=== PATIENT | male | born 2000 | race Hispanic/Latino ===

== ENCOUNTER 2022-12-29 13:34 | Emergency (ER) | payer OTHER ==
[~2022-12-29] VITALS: Ht 165.1 cm; Wt 98.9 kg
[2022-12-29] MEDS ORDERED: predniSONE 20 MG TAB PO ONE (14:55)
[2022-12-29] MEDS ORDERED: ALBUTEROL 90 MCG/ACT 8GM HFA INHALER INH ONE (14:55)
[2022-12-29] MEDS ORDERED: ALBU8.5H INH (15:39)
[2022-12-29] MEDS ORDERED: PRED20TA PO (15:39)
[2022-12-29 15:44] VITALS: BP 136/87
== END 2022-12-29 15:44 | disposition home or self-care (01) ==
LOC: M ED 13:34 → EDBD 13:34 → M ED 15:44
DX: J40 Bronchitis, not specified as acute or chronic (principal); F10.10 Alcohol abuse, uncomplicated; Z79.51 Long term (current) use of inhaled steroids; Z79.52 Long term (current) use of systemic steroids
CPT/HCPCS: 71046; 87428; 94640; 99284; J7512

== ENCOUNTER 2025-08-24 07:08 | Emergency (ER) | payer OTHER ==
[~2025-08-24] VITALS: Ht 167.6 cm; Wt 115.3 kg
[~2025-08-24 07:08] MED LIST: ALBU8.5H INH; PRED20TA PO
[2025-08-24 07:10] VITALS: TEMP 98.4
[2025-08-24 08:30] VITALS: BP 154/86
[2025-08-24] MEDS ORDERED: HOME MED LIST COMPLETE! XX SCH (08:30)
[2025-08-24 09:15] VITALS: O2SAT 96
[2025-08-24 09:19] LABS: APPEARANCE, URINE CLEAR (CLEAR); BACTERIA, URINE AUTO NEGATIVE (NEGATIVE); BILIRUBIN, URINE AUTO NEGATIVE (NEGATIVE); BLOOD, URINE BLOOD NEGATIVE (NEGATIVE); GLUCOSE, URINE (UA) AUTO NEGATIVE (NEGATIVE); KETONE, URINE AUTO NEGATIVE (NEGATIVE); LEUKOCYTE ESTERASE, URINE AUTO NEGATIVE (NEGATIVE); MUCUS, URINE SMALL (NEGATIVE); NITRITE, URINE AUTO NEGATIVE (NEGATIVE); PROTEIN, URINE AUTO 2+ mg/dL (NEGATIVE); RBC, URINE AUTO 0 /HPF (0-3); SPECIFIC GRAVITY URINE AUTO 1.027 (1.002-1.035); SQUAMOUS EPITHELIAL CELL UR AU 0 /HPF (0-6); UROBILINOGEN, URINE AUTO 0.2 mg/dL (0.0-2.0); WBC, URINE AUTO 1 /HPF (0-3)
[2025-08-24 09:21] LABS: BASO # 0.1 10^3/uL (0.0-0.2); BASO % 0.9 % (0.0-1.0); EOS # 0.2 10^3/uL (0.0-0.5); EOS % 2.2 % (0.0-3.0); LYMPH # 3.8 10^3/uL (1.5-5.0); LYMPH % 35.4 % (24.0-44.0); MONO # 0.5 10^3/uL (0.0-0.8); MONO % 4.3 % (2.0-8.0); NEUTROPHILS # 6.1 10^3/uL (1.5-8.5); NEUTROPHILS % 56.4 % (36.0-66.0); PLATELET COUNT, AUTOMATED 376 10^3/uL (150-450)
[2025-08-24 09:50] LABS: ACETONE/KETONE 0.08 MMOL/L (0.02-0.27); CALCIUM LEVEL 9.8 MG/DL (8.5-10.1); CARBON DIOXIDE LEVEL 28 MMOL/L (20-31); CHLORIDE LEVEL 102 MMOL/L (98-107); CREATININE FOR GFR 0.78 MG/DL (0.70-1.30); GLOMERULAR FILTRATION RATE > 90.0 (>60); POTASSIUM SERUM 4.5 MMOL/L (3.5-5.1); SODIUM LEVEL 139 MMOL/L (136-145)
[2025-08-24 09:51] LABS: OSMOLALITY SERUM 300 MOSM/KG (275-295)
[2025-08-24 09:54] LABS: ESTIMATED AVERAGE GLUCOSE 140.0 MG/DL (60-110)
== END 2025-08-24 10:08 | disposition home or self-care (01) ==
LOC: M ED 07:08
DX: E11.65 Type 2 diabetes mellitus with hyperglycemia (principal); Z91.048 Other nonmedicinal substance allergy status

== ENCOUNTER 2025-08-29 07:14 | Emergency (ER) | payer OTHER ==
[~2025-08-29] VITALS: Ht 167.6 cm; Wt 114.6 kg
[2025-08-29 07:17] VITALS: BP 164/92; TEMP 98.4
[2025-08-29 07:33] VITALS: O2SAT 96
[2025-08-29] MEDS ORDERED: METF-838 (07:38)
[2025-08-29 08:07] LABS: KETONE, URINE AUTO RFX NEGATIVE (NEGATIVE); LEUKOCYTE ESTERASE UR AUTO RFX NEGATIVE (NEGATIVE); MUCUS, URINE RFX SMALL (NEGATIVE); NITRITE, URINE AUTO RFX NEGATIVE (NEGATIVE); RBC, URINE AUTO RFX 0 /HPF (0-3); SQUAM EPITHELIAL CELL UR AURFX 0 /HPF (0-6); WBC, URINE AUTO RFX 0 /HPF (0-3)
[2025-08-29 08:17] LABS: VENOUS BASE EXCESS -0.7 (-2.0-2.0); VENOUS HCO3 26.6 MMOL/L (23.0-27.0); VENOUS O2 SATURATION 69.0 % (60.0-80.0); VENOUS PARTIAL PRESSURE CO2 52.8 mmHg (38.0-50.0); VENOUS PARTIAL PRESSURE O2 37.1 mmHg (30.0-50.0); VENOUS PH 7.320 UNITS (7.330-7.430); VENOUS STANDARD HCO3 23.0 MMOL/L; VENOUS TOTAL CO2 28.2 MMOL/L (24.0-28.0)
[2025-08-29 08:22] LABS: BASO # 0.1 10^3/uL (0.0-0.2); BASO % 0.9 % (0.0-1.0); EOS # 0.2 10^3/uL (0.0-0.5); EOS % 1.9 % (0.0-3.0); LYMPH # 3.2 10^3/uL (1.5-5.0); LYMPH % 35.2 % (24.0-44.0); MONO # 0.4 10^3/uL (0.0-0.8); MONO % 3.9 % (2.0-8.0); NEUTROPHILS # 5.3 10^3/uL (1.5-8.5); NEUTROPHILS % 57.7 % (36.0-66.0); PLATELET COUNT, AUTOMATED 337 10^3/uL (150-450)
[2025-08-29 08:44] LABS: ALT/SGPT 156 U/L (7.0-40); AST/SGOT 63 U/L (<34); CALCIUM LEVEL 9.5 MG/DL (8.5-10.1); CARBON DIOXIDE LEVEL 26 MMOL/L (20-31); CHLORIDE LEVEL 103 MMOL/L (98-107); CREATININE FOR GFR 0.74 MG/DL (0.70-1.30); GLOMERULAR FILTRATION RATE > 90.0 (>60); POTASSIUM SERUM 4.0 MMOL/L (3.5-5.1); SODIUM LEVEL 138 MMOL/L (136-145)
[2025-08-29 08:45] LABS: ACETONE/KETONE 0.25 MMOL/L (0.02-0.27)
[2025-08-29 08:49] LABS: OSMOLALITY SERUM 303 MOSM/KG (275-295)
[2025-08-29 09:03] LABS: ESTIMATED AVERAGE GLUCOSE 140.0 MG/DL (60-110)
== END 2025-08-29 09:57 | disposition home or self-care (01) ==
LOC: M ED 07:14
DX: E11.65 Type 2 diabetes mellitus with hyperglycemia (principal); I10 Essential (primary) hypertension; Z79.4 Long term (current) use of insulin; Z91.048 Other nonmedicinal substance allergy status